=== PATIENT | female | born 1930 | race Caucasian/White ===

== ENCOUNTER 2019-01-28 10:28 | Emergency (ER) | payer MEDICARE, OTHER | END 2019-01-28 14:58 | disposition home or self-care (01) | LOC: E/R 10:28 | DX: G44.209 Tension-type headache, unspecified, not intractable (principal); R40.2142 Coma scale, eyes open, spontaneous, at arrival to emergency department; R40.2362 Coma scale, best motor response, obeys commands, at arrival to emergency department; R40.2252 Coma scale, best verbal response, oriented, at arrival to emergency department; I10 Essential (primary) hypertension; Z79.82 Long term (current) use of aspirin; Z95.1 Presence of aortocoronary bypass graft | CPT/HCPCS: 70450; 72125; 99284-25 ==

== ENCOUNTER → 2019-04-25 | Outpatient (CLI) | payer MEDICARE, OTHER ==
[2019-04-25 09:02] LABS: BLOOD UREA NITROGEN 10 mg/dl (7-20)
[2019-04-25 09:02] LABS: CREATININE 0.63 mg/dl (0.44-1.00)
== END | disposition home or self-care (01) ==
LOC: LAB 07:42
DX: Z95.1 Presence of aortocoronary bypass graft (principal)
CPT/HCPCS: 82565; 84520

== ENCOUNTER → 2019-05-08 | Outpatient (CLI) | payer MEDICARE, OTHER ==
[~2019-05-08] MED LIST: NITROGLYCERIN AEROSOL (4.9 GM)
[2019-05-08] MEDS: IOHEXOL 100 ML (10:25)
[2019-05-08] MEDS: SOD CHLORIDE 0.9% 100 ML (10:25)
== END | disposition home or self-care (01) ==
LOC: C/S 08:20
DX: Z95.1 Presence of aortocoronary bypass graft (principal)
CPT/HCPCS: 75571; 75571-59; 75574